=== PATIENT | female | born 1935 | race American Indian/Alaskan Native ===

== ENCOUNTER 2016-10-18 07:47 | Day surgery (SDC) | payer MEDICARE ==
[2016-10-17 16:27] LABS: Hematocrit 20.4 % (30.3-42.9); Hemoglobin 6.2 gm/dl (10.1-14.3)
[2016-10-18] MEDS ORDERED: TYLENOL PO ONE (08:17)
[2016-10-18] MEDS ORDERED: BENADRYL IV ONE (08:18)
[2016-10-18] MEDS ORDERED: NACL 0.9% 250ML 250 ML IV ONE (08:20)
[2016-10-18 15:02] VITALS: BP 136/92
== END 2016-10-18 14:35 | disposition home or self-care (01) ==
LOC: OPU 07:47
PROVIDERS: ATTEND Internal Medicine Hematology & Oncology
DX: D64.9 Anemia, unspecified (principal); Z79.899 Other long term (current) drug therapy
CPT/HCPCS: 36415; 36430; 82962; 85014; 85018; 86850; 86900; 86901; 86920; 96374; J1200; J7050; P9016

== ENCOUNTER 2016-11-29 10:17 | Day surgery (SDC) | payer MEDICARE ==
[2016-11-28 13:55] LABS: Hematocrit 21.2 % (30.3-42.9); Hemoglobin 6.5 gm/dl (10.1-14.3)
[2016-11-29] MEDS ORDERED: NACL 0.9% 250ML 250 ML ONE (11:18)
[2016-11-29] MEDS ORDERED: NACL 0.9% 250ML 250 ML IV ONE (11:30)
[2016-11-29] MEDS ORDERED: TYLENOL PO ONE (12:00)
[2016-11-29] MEDS ORDERED: BENADRYL IV ONE (12:00)
[2016-11-29 16:11] VITALS: BP 121/83
== END 2016-11-29 17:00 | disposition home or self-care (01) ==
LOC: OPU 10:17
PROVIDERS: ATTEND Internal Medicine Hematology & Oncology
DX: D64.9 Anemia, unspecified (principal)
CPT/HCPCS: 36415; 36430; 85014; 85018; 86850; 86900; 86901; 86920; 96374; J1200; J7050; P9016

== ENCOUNTER 2019-08-22 10:40 | Emergency (ER) | payer MEDICARE ==
[2019-08-22 11:56] LABS: Basophils % (Auto) 0.5 % (0.0-1.8); Eosinophils # (Auto) 0.2 K/mm3 (0.0-0.4); Eosinophils % (Auto) 2.5 % (0.0-4.3); Hemoglobin 7.7 gm/dl (10.1-14.3); Lymphocytes # (Auto) 1.1 K/mm3 (1.2-5.4); Lymphocytes % (Auto) 11.5 % (13.4-35.0); Mean Corpuscular HGB Conc 34 % (30-34); Mean Corpuscular Volume 82 fl (79-97); Monocytes % (Auto) 10.4 % (0.0-7.3); Platelet Count 293 K/mm3 (140-440); Red Blood Count 2.81 M/mm3 (3.65-5.03); Red Cell Distribution Width 18.5 % (13.2-15.2)
[2019-08-22 12:23] LABS: Alanine Aminotransferase 10 units/L (7-56); Albumin 3.2 g/dL (3.9-5); BUN/Creatinine Ratio 14; Blood Urea Nitrogen 10 mg/dL (7-17); Calcium 8.7 mg/dL (8.4-10.2); Hemolysis Index 12
--- NOTE | 2019-08-22 16:40 | XRay Report ---
CHEST 2 VIEWS INDICATION / CLINICAL INFORMATION: Shortness of breath. COMPARISON: None available. FINDINGS: SUPPORT DEVICES: None. 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 There is mild cardiomegaly with prominence of the kojo tral pulmonary vasculature. LUNGS / PLEURA: There is mild diffuse interstitial lung disease, right greater than left. There are m inimal bilateral pleural effusions. No pneumothorax. ADDITIONAL FINDINGS: A compression fracture in the mid lumbar spine is of uncertain age. IMPRESSION: Mild congestive heart failure. Signer Name: Jorge A Urrutia MD Signed: 08/22/2019 4:36 PM Workstation Name: [id number]
[2019-08-22] MEDS ORDERED: FUROSEMIDE 40 MG/4 ML INJ IV ONE (17:34)
--- NOTE | 2019-08-22 17:40 | Emergency Department Report ---
ED General Adult HPI - General Chief complaint: Recheck/Abnormal Lab/Rx Stated complaint: DOC ORDERED/BLOOD LOW Time Seen by Provider: 08/22/19 15:33 Source: patient Mode of arrival: Wheelchair Limitations: Other - History of Present Illness Initial comments: She presents to the emergency department with a chief complaint of exertional shortness of breath the last couple of days. Patient has a history of CHF and COPD and takes Lasix daily. Patient denies any chest pain abdominal pain or headache. -: Gradual Severity scale (0 -10): 0 Improves with: rest Worsens with: movement Associated Symptoms: denies other symptoms Treatments Prior to Arrival: none - Related Data Home Medications Medication Instructions Recorded Confirmed Last Taken Aspirin 81 mg PO DAILY 11/25/14 10/18/16 10/17/16 Clopidogrel Bisulfate [Plavix] 75 mg PO DAILY 11/25/14 10/18/16 10/17/16 Hydroxychloroquine 200 mg PO BID 11/25/14 10/18/16 10/17/16 Lasix 40 mg PO BID 11/25/14 10/18/16 10/17/16 Metolazone 2.5 mg PO DAILY 11/25/14 10/18/16 10/17/16 Pantoprazole [Protonix TAB] 40 mg PO DAILY 11/25/14 10/18/16 10/17/16 Potassium Chloride [Klor-Con] 20 meq PO DAILY 11/25/14 10/18/16 10/17/16 predniSONE [Prednisone] 5 mg PO DAILY 11/25/14 10/18/16 10/17/16 Gabapentin 300 mg PO QHS 12/10/14 10/18/16 10/17/16 Allergies Allergy/AdvReac Type Severity Reaction Status Date / Time No Known Allergies Allergy Verified 08/22/19 10:41 ED Review of Systems ROS: Stated complaint: DOC ORDERED/BLOOD LOW Other details as noted in HPI Comment: All other systems reviewed and negative Constitutional: denies: chills, fever Eyes: denies: eye pain, eye discharge, vision change ENT: denies: ear pain, throat pain Respiratory: shortness of breath. denies: cough, wheezing Cardiovascular: denies: chest pain, palpitations Endocrine: no symptoms reported Gastrointestinal: denies: abdominal pain, nausea, diarrhea Genitourinary: denies: urgency, dysuria, discharge Musculoskeletal: denies: back pain, joint swelling, arthralgia Skin: denies: rash, lesions Neurological: denies: headache, weakness, paresthesias Psychiatric: denies: anxiety, depression Hematological/Lymphatic: denies: easy bleeding, easy bruising ED Past Medical Hx - Past Medical History Hx Congestive Heart Failure: Yes Hx Diabetes: Yes Hx Arthritis: Yes Hx COPD: Yes - Surgical History Hx Cholecystectomy: Yes - Social History Smoking Status: Former Smoker Substance Use Type: None - Medications Home Medications: Home Medications Medication Instructions Recorded Confirmed Last Taken Type Aspirin 81 mg PO DAILY 11/25/14 10/18/16 10/17/16 History Clopidogrel Bisulfate [Plavix] 75 mg PO DAILY 11/25/14 10/18/16 10/17/16 History Hydroxychloroquine 200 mg PO BID 11/25/14 10/18/16 10/17/16 History Lasix 40 mg PO BID 11/25/14 10/18/16 10/17/16 History Metolazone 2.5 mg PO DAILY 11/25/14 10/18/16 10/17/16 History Pantoprazole [Protonix TAB] 40 mg PO DAILY 11/25/14 10/18/16 10/17/16 History Potassium Chloride [Klor-Con] 20 meq PO DAILY 11/25/14 10/18/16 10/17/16 History predniSONE [Prednisone] 5 mg PO DAILY 11/25/14 10/18/16 10/17/16 History Gabapentin 300 mg PO QHS 12/10/14 10/18/16 10/17/16 History ED Physical Exam - General Limitations: Other General appearance: alert, in no apparent distress - Head Head exam: Present: atraumatic, normocephalic - Eye Eye exam: Present: normal appearance, PERRL, EOMI - ENT ENT exam: Present: mucous membranes moist - Neck Neck exam: Present: normal inspection - Respiratory Respiratory exam: Present: rales (mild rales bilaterally ). Absent: respiratory distress - Cardiovascular Cardiovascular Exam: Present: regular rate, normal rhythm. Absent: systolic murmur, diastolic murmur, rubs, gallop - GI/Abdominal GI/Abdominal exam: Present: soft, normal bowel sounds - Extremities Exam Extremities exam: Present: normal inspection - Back Exam Back exam: Present: normal inspection - Neurological Exam Neurological exam: Present: alert, oriented X3 - Psychiatric Psychiatric exam: Present: normal affect, normal mood - Skin Skin exam: Present: warm, dry, intact, normal color. Absent: rash ED Course Vital Signs 08/22/19 10:52 Temperature 98.9 F Pulse Rate 93 H Respiratory 18 Rate Blood Pressure 139/54 O2 Sat by Pulse 100 Oximetry ED Medical Decision Making - Lab Data Result diagrams: 08/22/19 11:41 08/22/19 11:41 Lab Results 08/22/19 08/22/19 08/22/19 Range/Units 11:41 11:41 11:41 WBC 9.4 (4.5-11.0) K/mm3 RBC 2.81 L (3.65-5.03) M/mm3 Hgb 7.7 L (10.1-14.3) gm/dl Hct 23.0 L (30.3-42.9) % MCV 82 (79-97) fl MCH 28 (28-32) pg MCHC 34 (30-34) % RDW 18.5 H (13.2-15.2) % Plt Count 293 (140-440) K/mm3 Lymph % (Auto) 11.5 L (13.4-35.0) % [place] % (Auto) 10.4 H (0.0-7.3) % Eos % (Auto) 2.5 (0.0-4.3) % Baso % (Auto) 0.5 (0.0-1.8) % Lymph # 1.1 L (1.2-5.4) K/mm3 [place] # 1.0 H (0.0-0.8) K/mm3 Eos # 0.2 (0.0-0.4) K/mm3 Baso # 0.0 (0.0-0.1) K/mm3 Seg Neutrophils % 75.1 H (40.0-70.0) % Seg Neutrophils # 7.1 (1.8-7.7) K/mm3 Sodium 138 (137-145) mmol/L Potassium 5.0 (3.6-5.0) mmol/L Chloride 95.2 L (98-107) mmol/L Carbon Dioxide 29 (22-30) mmol/L Anion Gap 19 mmol/L BUN 10 (7-17) mg/dL Creatinine 0.7 (0.7-1.2) mg/dL Estimated GFR > 60 ml/min BUN/Creatinine Ratio 14 % Glucose 167 H (65-100) mg/dL Calcium 8.7 (8.4-10.2) mg/dL Total Bilirubin 0.20 (0.1-1.2) mg/dL AST 15 (5-40) units/L ALT 10 (7-56) units/L Alkaline Phosphatase 61 (35-129) units/L Troponin T (0.00-0.029) ng/mL NT-Pro-B Natriuret Pep (0-900) pg/mL Total Protein 7.2 (6.3-8.2) g/dL Albumin 3.2 L (3.9-5) g/dL Albumin/Globulin Ratio 0.8 % Blood Type A POSITIVE Antibody Screen Negative 08/22/19 Range/Units 11:41 WBC (4.5-11.0) K/mm3 RBC (3.65-5.03) M/mm3 Hgb (10.1-14.3) gm/dl Hct (30.3-42.9) % MCV (79-97) fl MCH (28-32) pg MCHC (30-34) % RDW (13.2-15.2) % Plt Count (140-440) K/mm3 Lymph % (Auto) (13.4-35.0) % [place] % (Auto) (0.0-7.3) % Eos % (Auto) (0.0-4.3) % Baso % (Auto) (0.0-1.8) % Lymph # (1.2-5.4) K/mm3 [place] # (0.0-0.8) K/mm3 Eos # (0.0-0.4) K/mm3 Baso # (0.0-0.1) K/mm3 Seg Neutrophils % (40.0-70.0) % Seg Neutrophils # (1.8-7.7) K/mm3 Sodium (137-145) mmol/L Potassium (3.6-5.0) mmol/L Chloride (98-107) mmol/L Carbon Dioxide (22-30) mmol/L Anion Gap mmol/L BUN (7-17) mg/dL Creatinine (0.7-1.2) mg/dL Estimated GFR ml/min BUN/Creatinine Ratio % Glucose (65-100) mg/dL Calcium (8.4-10.2) mg/dL Total Bilirubin (0.1-1.2) mg/dL AST (5-40) units/L ALT (7-56) units/L Alkaline Phosphatase (35-129) units/L Troponin T 0.014 (0.00-0.029) ng/mL NT-Pro-B Natriuret Pep 3945 H (0-900) pg/mL Total Protein (6.3-8.2) g/dL Albumin (3.9-5) g/dL Albumin/Globulin Ratio % Blood Type Antibody Screen - Radiology Data Radiology results: report reviewed - Medical Decision Making Patient given IV Lasix Patient offered admission but politely declined Critical Care Time: Yes Critical care time in (mins) excluding proc time.: 35 Critical care attestation.: If time is entered above; I have spent that time in minutes in the direct care of this critically ill patient, excluding procedure time. ED Disposition Clinical Impression: CHF (congestive heart failure) Disposition: DC-01 TO HOME OR SELFCARE Is pt being admited?: No Does the pt Need Aspirin: No Condition: Stable Instructions: Heart Failure (ED) Additional Instructions: Please double up on your diuretic for the next 2 days Referrals: GHASSAN MULLIGAN MD [Primary Care Provider] - 3-5 Days Time of Disposition: 17:40
[2019-08-22] MEDS ORDERED: FUROSEMIDE 20 MG TAB ONE (18:05)
[2019-08-22] MEDS ORDERED: FUROSEMIDE 20 MG TAB PO ONE (18:21)
[2019-08-22 18:25] VITALS: BP 137/68
== END 2019-08-22 18:27 | disposition home or self-care (01) ==
LOC: ED 10:40
DX: I50.9 Heart failure, unspecified (principal); E11.9 Type 2 diabetes mellitus without complications; M19.90 Unspecified osteoarthritis, unspecified site; J44.9 Chronic obstructive pulmonary disease, unspecified; F12.10 Cannabis abuse, uncomplicated
CPT/HCPCS: 36415; 71046; 80053; 83880; 84484; 85025; 86850; 86900; 86901; 93005; 93010; J1940